=== PATIENT | male | born 1990 | race African-American/Black ===

== ENCOUNTER 2023-05-01 16:13 | Emergency (ER) | payer MEDICAID, OTHER ==
[~2023-05-01] VITALS: Ht 167.6 cm; Wt 63.5 kg
[2023-05-01 16:49] LABS: BASOPHILS % (AUTO) 0.3 % (0.0-2.0); EOSINOPHILS % (AUTO) 0.4 % (0.0-7.0); HEMATOCRIT 35.9 % (36.7-47.1); HEMOGLOBIN 12.1 g/dL (12.5-16.3); LYMPHOCYTES # (AUTO) 3.3 K/uL (0.8-4.8); LYMPHOCYTES % (AUTO) 37.8 % (20.5-51.5); MEAN CORPUSCULAR HEMOGLOBIN 29.3 uug (23.8-33.4); MEAN CORPUSCULAR HGB CONC 34 g/dL (32.5-36.3); MEAN CORPUSCULAR VOLUME 86.6 fL (73.0-96.2); MONOCYTES # (AUTO) 0.7 K/uL (0.1-1.30); MONOCYTES % (AUTO) 7.7 % (0.0-11.0); NEUTROPHILS # (AUTO) 4.7 K/uL (1.8-8.9); NEUTROPHILS % (AUTO) 53.8 % (38.5-71.5); PLATELET COUNT (AUTO) 349 K/uL (152-348); RED BLOOD CELL COUNT(AUTO) 4.14 MIL/uL (4.06-5.63); WHITE BLOOD COUNT (AUTO) 8.7 K/uL (3.6-10.2)
[2023-05-01 16:50] LABS: DIFFERENTIAL COMMENT 1
[2023-05-01 16:58] LABS: CALCIUM 9.2 mg/dL (8.5-10.1); CARBON DIOXIDE 26 mmol/L (21-32); CHLORIDE 100 mmol/L (98-107); CREATININE 1.2 mg/dL (0.6-1.3); GLUCOSE 100 mg/dL (74-106); POTASSIUM 4.1 mmol/L (3.5-5.1); SODIUM SERUM 137 mmol/L (136-145); UREA NITROGEN, BLOOD 27 mg/dL (7-18)
[2023-05-01 16:59] LABS: ETHANOL < 3 MG/DL (0-10)
[2023-05-01 17:06] LABS: ACETAMINOPHEN < 2.0 ug/mL (10-30); ALANINE AMINOTRANSFERASE 36 U/L (16-63); ALBUMIN 3.8 g/dL (3.4-5.0); ALKALINE PHOSPHATASE 142 U/L (50-136); ASPARTATE AMINOTRANSFERASE 58 U/L (15-37); BILIRUBIN,DIRECT 0.1 mg/dL (0.0-0.2); BILIRUBIN,TOTAL 0.6 mg/dL (0.2-1.0); TOTAL PROTEIN, SERUM 7.3 g/dL (6.4-8.2)
[2023-05-01] MEDS ORDERED: OLANZAPINE 10 MG VIAL IM ONE ×2 (17:55→18:00)
[2023-05-01 20:50] VITALS: BP 109/64; O2SAT 97
== END 2023-05-01 20:51 | disposition home or self-care (01) ==
LOC: ER 16:25
DX: T40.711A Poisoning by cannabis, accidental (unintentional), initial encounter (principal); F15.129 Other stimulant abuse with intoxication, unspecified; R07.89 Other chest pain; Y92.89 Other specified places as the place of occurrence of the external cause
CPT/HCPCS: 36415; 71045; 85025; A4606; A4663; G0480; J2358

== ENCOUNTER 2024-04-18 20:19 | Emergency (ER) | payer MEDICAID ==
[~2024-04-18] VITALS: Ht 167.6 cm; Wt 61.2 kg
[2024-04-18] MEDS ORDERED: HALOPERIDOL LACTATE 5 MG/1 ML VIAL ONE (21:09)
[2024-04-18 21:25] LABS: CALCIUM 9.1 mg/dL (8.5-10.1); CARBON DIOXIDE 33 mmol/L (21-32); CHLORIDE 103 mmol/L (98-107); GLUCOSE 102 mg/dL (74-106); POTASSIUM 4.1 mmol/L (3.5-5.1); SODIUM SERUM 141 mmol/L (136-145); UREA NITROGEN, BLOOD 9 mg/dL (7-18)
[2024-04-18 21:27] LABS: BASOPHILS % (AUTO) 0.3 % (0.0-2.0); EOSINOPHILS # (AUTO) 0.1 K/uL (0.0-0.7); EOSINOPHILS % (AUTO) 1.4 % (0.0-7.0); HEMATOCRIT 33.5 % (36.7-47.1); HEMOGLOBIN 11.5 g/dL (12.5-16.3); LYMPHOCYTES # (AUTO) 2.1 K/uL (0.8-4.8); LYMPHOCYTES % (AUTO) 42.9 % (20.5-51.5); MEAN CORPUSCULAR HEMOGLOBIN 30.1 uug (23.8-33.4); MEAN CORPUSCULAR HGB CONC 34 g/dL (32.5-36.3); MEAN CORPUSCULAR VOLUME 87.8 fL (73.0-96.2); MONOCYTES # (AUTO) 0.4 K/uL (0.1-1.30); NEUTROPHILS # (AUTO) 2.3 K/uL (1.8-8.9); NEUTROPHILS % (AUTO) 46.4 % (38.5-71.5); PLATELET COUNT (AUTO) 347 K/uL (152-348); RED BLOOD CELL COUNT(AUTO) 3.81 MIL/uL (4.06-5.63); RED CELL DISTRIBUTION WIDTH 13.1 % (12.1-16.2); WHITE BLOOD COUNT (AUTO) 4.9 K/uL (3.6-10.2)
[2024-04-18 21:30] LABS: DIFFERENTIAL COMMENT 1
[2024-04-18 21:38] LABS: ALANINE AMINOTRANSFERASE 38 U/L (16-63); ALBUMIN 3.6 g/dL (3.4-5.0); ALKALINE PHOSPHATASE 90 U/L (50-136); ASPARTATE AMINOTRANSFERASE 20 U/L (15-37); BILIRUBIN,DIRECT 0.1 mg/dL (0.0-0.2); BILIRUBIN,TOTAL 0.5 mg/dL (0.2-1.0); NT-PRO BNP 69 pg/mL (0-125); TOTAL PROTEIN, SERUM 6.8 g/dL (6.4-8.2)
[2024-04-18] MEDS ORDERED: NALO4SPR NS (21:38)
[2024-04-18] MEDS: IV NORMAL SALINE 1000 ML BAG IV ONE (21:48)
[2024-04-18] MEDS: HALOPERIDOL LACTATE 5 MG/1 ML VIAL IV ONE (21:48)
[2024-04-18 21:49] VITALS: BP 125/71; TEMP 98.6; O2SAT 95
== END 2024-04-18 21:49 | disposition left against medical advice (07) ==
LOC: ER 20:21
DX: T40.411A Poisoning by fentanyl or fentanyl analogs, accidental (unintentional), initial encounter (principal); F31.9 Bipolar disorder, unspecified; F12.90 Cannabis use, unspecified, uncomplicated; F17.200 Nicotine dependence, unspecified, uncomplicated; F15.129 Other stimulant abuse with intoxication, unspecified; R94.31 Abnormal electrocardiogram [ECG] [EKG]; Z86.711 Personal history of pulmonary embolism
CPT/HCPCS: 36415; 71045; 84484; 85025; A4606; A4663; J1630; J7040

== ENCOUNTER 2024-04-27 21:10 | Emergency (ER) | payer MEDICAID ==
[~2024-04-27 21:10] MED LIST: NALO4SPR NS
== END 2024-04-27 21:20 | disposition left against medical advice (07) ==
LOC: ER 21:11
DX: T40.411A Poisoning by fentanyl or fentanyl analogs, accidental (unintentional), initial encounter (principal); F31.9 Bipolar disorder, unspecified; F12.90 Cannabis use, unspecified, uncomplicated; Y92.89 Other specified places as the place of occurrence of the external cause
CPT/HCPCS: A4606; A4663